=== PATIENT | female | born 1960 | race Caucasian/White ===

== ENCOUNTER → 2017-11-18 12:34 | Outpatient (CLI) | payer BC, SELFPAY ==
--- NOTE | 2017-11-18 12:36 | BI_ITS ---
MAMMOGRAPHY - BILATERAL SCREENING 3-D GUILLERMO SYNTHESIS REASON FOR EXAM: Female, 57 years old. Bilateral Screening 3-D tomosynthesis PERTINENT HISTORY: Aunt with breast cancer.. TECHNIQUE: 2-D mammograms and 3-D Guillermo synthesis of the breast (s) were performed. CAD was performed. COMPARISON: 09/25/2016 FINDINGS: The breast composition is composed of scattered fibroglandular density. Scattered benign calcifications are seen. No dense spiculated masses or suspicious microcalcifications are identified. No architectural distortion is identified. There is no skin thickening or retraction. There has been no significant change since the prior study. BI/SCREENING MAMM (CAD), BILAT IMPRESSION: No mammographic signs of malignancy. Routine yearly mammograms recommended. ASSESSMENT CATEGORY: BIRADS Category 1: Negative. A letter regarding these results will be sent to the patient by the facility within 30 days. FOLLOW UP RECOMMENDATION: Yearly follow up mammogram recommended. (A) Approximately 10% of breast cancers are not detected by mammography. A normal mammogram should not delay biopsy of a clinically suspicious abnormality. Electronically Signed: Tin Peck MD at 9:55 EDT , Service support ,
--- NOTE | 2017-11-18 12:40 | BD_ITS ---
STUDY: DUAL ENERGY X-RAY ABSORPTIOMETRY / DXA REASON FOR EXAM: Female, 57 years old. Postmenopausal screening TECHNIQUE: Bone Mineral Density (BMD) measurements of lumbar spine and bilateral hips were obtained. COMPARISON: None. FINDINGS: Lumbar Spine (L1-L4): g/cm2 (1.387) / T-score (1.7) / Z-score (2.7) Findings are suggestive of normal bone density with a low fracture risk. Left Femur Total: g/cm2 (0.995) / T-score (-0.1) / Z-score (0.7) Left Femoral Neck: g/cm2 (1.117) / T-score (-0.2) / Z-score (1.0) Right Femur Total: g/cm2 (0.997) / T-score (-0.1) / Z-score (0.7) Right Femoral Neck: g/cm2 (1.012) / T-score (-0.2) / Z-score (0.9) BD/Dexa Bone Density Study IMPRESSION: The patient is considered normal as outlined below according to World Vasiliy Organization (WHO) criteria with a low fracture risk. Reference Information: The T-score is the number of standard deviations above or below the standard which is normal for young adults at their peak bone mineral density. The World Health Organization (WHO) interprets the T-scores as follows: Above -1 Normal bone density Between -1 and -2.5 Osteopenia Equal to / or below -2.5 Osteoporosis As a practical clinical guideline, osteopenia may be graded as follows: Mild -1 through -1.5 Moderate -1.6 through -2.0 Severe -2.1 through -2.4 The Z-score is the number of standard deviations above or below age-matched controls. A Z-score of less than -1.5 would be considered abnormal. References: 1. NIH Osteoporosis and Related Bone Diseases http://www.osteo.org 2. International Society for Clinical Densitometry http://www.iscd.org 3. National Osteoporosis Foundation http://www.nof.org Electronically Signed: Tin Peck MD at 12:45 EDT , Service support ,
== END ==
PROVIDERS: Family Provider Family Medicine; PCP Family Medicine; Visit Provider Obstetrics & Gynecology
DX: Z12.31 Encounter for screening mammogram for malignant neoplasm of breast (principal); Z13.820 Encounter for screening for osteoporosis
CPT/HCPCS: 77063; 77067; 77080

== ENCOUNTER → 2019-02-04 16:56 | Outpatient (CLI) | payer OTHER, SELFPAY ==
[2018-03-25 17:26] VITALS: BMI 29.2
[2019-02-04 18:19] LABS: T4 Total, Thyroxin 11.6 ug/dL (4.8-13.9); Thyroid Stim Hormone (TSH) 1.59 uIU/mL (0.358-3.74)
== END ==
PROVIDERS: Family Provider Family Medicine; PCP Family Medicine; Referring Provider Family Medicine; Visit Provider Family Medicine
DX: E04.1 Nontoxic single thyroid nodule (principal)
CPT/HCPCS: 36415; 84436; 84443

== ENCOUNTER → 2019-02-08 14:41 | Outpatient (CLI) | payer OTHER, SELFPAY ==
[2018-03-25 17:26] VITALS: BMI 29.2
--- NOTE | 2019-02-08 14:46 | US_ITS ---
STUDY: THYROID ULTRASOUND REASON FOR EXAM: Female, 59 years old. Thyroid nodule TECHNIQUE: Ultrasound evaluation of the thyroid was performed with real-time and static lopez-scale imaging. COMPARISON: February 20, 2016 FINDINGS: RIGHT LOBE: The right lobe of the thyroid gland measures 5.1 x 1.7 x 1.3 cm. There is a homogeneous echotexture. There is 0.5 cm hypoechoic nodule at the upper pole. LEFT LOBE: The left lobe of the thyroid gland measures 2.9 x 1.7 x 1.4 cm. There is a homogeneous echotexture. There is a 0.3 cm cystic nodule in the mid aspect. ISTHMUS: The isthmus measures 0.2 cm. The regional lymph nodes are normal. US/Thyroid IMPRESSION: Small thyroid nodules are stable. Electronically Signed: Corky Light MD at 17:22 EDT , Service support ,
== END ==
PROVIDERS: Family Provider Family Medicine; PCP Family Medicine; Referring Provider Family Medicine; Visit Provider Family Medicine
DX: E04.1 Nontoxic single thyroid nodule (principal)
CPT/HCPCS: 76536

== ENCOUNTER → 2019-03-11 16:29 | Outpatient (CLI) | payer OTHER, SELFPAY ==
[2018-03-25 17:26] VITALS: BMI 29.2
--- NOTE | 2019-03-11 16:32 | RAD_ITS ---
STUDY: X-RAY - ABDOMEN/PELVIS REASON FOR EXAM: Female, 59 years old. Abdominal pain TECHNIQUE: 3 views COMPARISON: None. FINDINGS: Normal visualized lung bases. There is an unremarkable bowel gas pattern. There is no demonstrated free abdominal air. The visualized liver, spleen and kidneys are grossly normal in size and morphology. Normal soft tissue structures. Mild degenerative vertebral changes. RAD/Abd Inc Decub and/or Erect IMPRESSION: No acute pathology of the abdomen and pelvis. Electronically Signed: Tung Corral DO at 22:37 EST Tel [phone], Service support ,
[2019-03-11 17:40] LABS: Absolute Lymphocyte Count 4.51 X10^3/uL (0.83-4.51); Absolute Neutrophil Count 5.8 X10^3/uL (2.0-7.7); Basophil# 0.05 X10^3/uL; Basophil% 0.4 % (0-1); Eosinophil# 0.12 X10^3/uL; Eosinophils% 1.1 % (0-5); Hematocrit 45.8 % (37-47); Hemoglobin 14.4 g/dL (12.0-15.0); Lymphocyte # 4.51 X10^3/ul (4.0); Lymphocyte % 39.8 % (19-41); Mean Corp Hgb Conc 31.4 g/dL (32-36); Mean Corpuscular Hgb 28.7 pg (27.0-32.0); Mean Corpuscular Volume 91.4 fL (81-99); Monocyte# 0.85 X10^3/uL; Monocyte% 7.5 % (0-10); NRBC Flagged by Analyzer 0 % (0-5); Neutrophil # 5.77 X10^3/uL (2.7-7.7); Neutrophil % 50.8 % (47-70); Platelet Count 315 K/mm3 (150-450); RBC Distribution Width CV 12.8 % (11.6-14.6); RBC Distribution Width SD 43.2 fl (35.1-43.9); Red Blood Count 5.01 M/mm3 (4.2-5.4); White Blood Count 11.3 K/mm3 (4.4-11.0)
== END ==
PROVIDERS: Family Provider Family Medicine; PCP Family Medicine; Referring Provider Family Medicine; Visit Provider Family Medicine
DX: R10.9 Unspecified abdominal pain (principal)
CPT/HCPCS: 36415; 74019; 85025

== ENCOUNTER → 2019-11-03 16:15 | Outpatient (CLI) | payer OTHER, SELFPAY ==
[2018-03-25 17:26] VITALS: BMI 29.2
[2019-11-03 17:37] LABS: Absolute Lymphocyte Count 3.14 X10^3/uL (0.83-4.51); Absolute Neutrophil Count 4.7 X10^3/uL (2.0-7.7); Basophil# 0.03 X10^3/uL; Basophil% 0.3 % (0-1); Eosinophil# 0.11 X10^3/uL; Eosinophils% 1.3 % (0-5); Hematocrit 45.1 % (37-47); Hemoglobin 14.3 g/dL (12.0-15.0); Lymphocyte # 3.14 X10^3/ul (4.0); Lymphocyte % 36.1 % (19-41); Mean Corp Hgb Conc 31.7 g/dL (32-36); Mean Corpuscular Hgb 28.8 pg (27.0-32.0); Mean Corpuscular Volume 90.7 fL (81-99); Mean Platelet Vol. 10.7 fl (6.2-12.0); Monocyte# 0.66 X10^3/uL; Monocyte% 7.6 % (0-10); NRBC Flagged by Analyzer 0 % (0-5); Neutrophil # 4.73 X10^3/uL (2.7-7.7); Neutrophil % 54.2 % (47-70); Platelet Count 312 K/mm3 (150-450); RBC Distribution Width CV 13.8 % (11.6-14.6); Red Blood Count 4.97 M/mm3 (4.2-5.4); White Blood Count 8.7 K/mm3 (4.4-11.0)
[2019-11-03 18:12] LABS: ALB/GLOB Ratio 1.2 RATIO (0.9-2.4); AST(SGOT) 16 U/L (15-37); Alanine Aminotransfer ALT/SGPT 24 U/L (13-56); Albumin, Serum 3.8 g/dL (3.2-5.0); Alkaline Phosphatase 87 U/L (45-117); Anion Gap 6 (5-15); BUN 10 mg/dL (7-18); BUN/Creat Ratio 13.9 RATIO (10-20); Calcium,Total 8.9 mg/dL (8.5-10.1); Chloride 109 mmol/L (98-107); Creatinine, Serum 0.72 mg/dL (0.55-1.02); EST Glomerular Filtration Rate 88 mL/min (>60); Est Glom Filt Rate - Afr Amer 107 mL/min (>60); Globulin 3.3 g/dL (2.2-4.2); Glucose 82 mg/dL (74-106); Potassium 3.8 mmol/L (3.5-5.1); Protein, Total 7.1 g/dL (6.4-8.2); Sodium Level 141 mmol/L (136-145); Thyroid Stim Hormone (TSH) 1.29 uIU/mL (0.358-3.74)
[2019-11-04 07:27] LABS: SARS-COV-2 TOTAL ABS Nonreactive (Nonreactive)
== END ==
PROVIDERS: PCP Family Medicine; Visit Provider Family Medicine
DX: F32.9 Major depressive disorder, single episode, unspecified (principal); Z20.828 Contact with and (suspected) exposure to other viral communicable diseases
CPT/HCPCS: 80053; 84443; 85025; 86769; G2023

== ENCOUNTER → 2021-02-27 15:48 | Outpatient (CLI) | payer BC, SELFPAY ==
[2021-02-27 18:07] LABS: ALB/GLOB Ratio 1.1 RATIO (0.9-2.4); AST(SGOT) 17 U/L (15-37); Alanine Aminotransfer ALT/SGPT 27 U/L (13-56); Albumin, Serum 3.8 g/dL (3.2-5.0); Alkaline Phosphatase 93 U/L (45-117); Anion Gap 5 (5-15); BUN 13 mg/dL (7-18); BUN/Creat Ratio 15.6 RATIO (10-20); Calcium,Total 8.9 mg/dL (8.5-10.1); Chloride 105 mmol/L (98-107); Cholesterol 189 mg/dL (200); Creatinine, Serum 0.83 mg/dL (0.55-1.02); EST Glomerular Filtration Rate 74 mL/min (>60); Est Glom Filt Rate - Afr Amer 90 mL/min (>60); Globulin 3.5 g/dL (2.2-4.2); Glucose 99 mg/dL (74-106); High Density Lipoprotein 40 mg/dL; Potassium 3.8 mmol/L (3.5-5.1); Protein, Total 7.3 g/dL (6.4-8.2); Sodium Level 139 mmol/L (136-145); Triglycerides 246 mg/dL; Very Low Density Lipoprotein 49 mg/dL (5-40)
== END ==
PROVIDERS: PCP Family Medicine; Referring Provider Family Medicine; Visit Provider Family Medicine
DX: Z00.00 Encounter for general adult medical examination without abnormal findings (principal)
CPT/HCPCS: 36415; 80053; 80061

== ENCOUNTER → 2021-03-12 12:47 | Outpatient (CLI) | payer BC, SELFPAY ==
[2021-03-12 13:43] LABS: Erythrocyte Sedimentation Rate 18 mm/hr (0-30)
[2021-03-12 14:24] LABS: CRP 8.56 mg/L (0.0-3.0)
[2021-03-14 19:07] LABS: Endomysial Antibody IgA Negative (Negative)
[2021-03-15 14:05] LABS: Deamidated Gliadin IgA 5 units (0-19)
[2021-03-15 14:06] LABS: Deamidated Gliadin IgG 1 units (0-19); Immunoglobulin A 162 mg/dL (87-352); t-Transglutaminase IgA <2 U/mL (0-3)
[2021-03-15 18:07] LABS: Immunoglobulin A 156 mg/dL (87-352); Immunoglobulin E 226 IU/mL (6-495); Immunoglobulin G 797 mg/dL (586-1602); Immunoglobulin M 104 mg/dL (26-217)
[2021-03-16 11:32] LABS: Gastrin, Serum 446 pg/mL (0-115)
== END ==
PROVIDERS: PCP Family Medicine; Referring Provider Internal Medicine Gastroenterology; Visit Provider Internal Medicine Gastroenterology
DX: R19.7 Diarrhea, unspecified (principal)
CPT/HCPCS: 36415; 82784; 82785; 82941; 83516; 84443; 85652; 86140; 86255

== ENCOUNTER → 2021-04-04 06:38 | Outpatient (CLI) | payer BC, SELFPAY ==
--- NOTE | 2021-04-04 06:40 | MRI_ITS ---
STUDY: MRI ABDOMEN WITH AND WITHOUT CONTRAST REASON FOR EXAM: Female, 61 years old. Elevated gastrin level, chronic diarrhea TECHNIQUE: Standardized fat and water weighted pulse sequences were obtained in all 3 orthogonal planes post contrast administration. 16ml IV Dotarem was administered for the contrast portion of the examination. COMPARISON: CT 02/06/1950 FINDINGS: The visualized lung bases are unremarkable. The visualized portions of the heart are within normal limits. Normal liver. There is non-visualization of the gallbladder, which may be secondary to either contraction or a prior cholecystectomy. Normal spleen. Normal pancreas. Normal bilateral adrenal glands. Normal right kidney. Normal left kidney. Normal visualized stomach. Normal small intestine. Normal colon. The appendix is visualized and appears normal. Normal abdominal aorta. Normal inferior vena cava. Normal retroperitoneum. Normal abdominal wall. Normal osseous structures. MRI/MRI Abd WITH and W/O Contrast IMPRESSION: Normal unenhanced and enhanced MRI of the abdomen. Electronically Signed: Damian Dutta MD at 10:42 EST Tel , Service support ,
[2021-04-05 16:45] LABS: Calprotectin, Stool 83 ug/g (0-120)
[2021-04-05 16:57] LABS: Giardia Lamblia, Stool EIA Negative (Negative)
== END ==
PROVIDERS: PCP Family Medicine; Referring Provider Internal Medicine Gastroenterology; Visit Provider Internal Medicine Gastroenterology
DX: E16.4 Increased secretion of gastrin (principal); R19.7 Diarrhea, unspecified; Z86.73 Personal history of transient ischemic attack (TIA), and cerebral infarction without residual deficits
CPT/HCPCS: 74183; 83993; 87329; 87506; A9575

== ENCOUNTER 2021-04-11 07:01 | Day surgery (SDC) | payer BC, SELFPAY ==
[2021-04-11] MEDS: Lactated Ringers 1,000 ML 15 ML IV (07:15)
[2021-04-11 07:26] VITALS: BP 148/94; PULSE 67; RESP 16; TEMP 36.2; O2SAT 99; BMI 26.4
--- NOTE | 2021-04-11 07:59 | HP.PCM_ITS ---
History and Physical Date of Admission: 04/11/21 [facility] [id number] [place] [address] OFFICE VISITDate of Service: 03/12/21 MR#:[id number]:[id number]: OSMAR ARROYONRep #:[id number] Provider:Kendall Dupont DOAge/Sex: 61/F [facility] [place].BGIStatus:Signed Intake Intake Visit Reasons: Irritable bowel syndrome Allergies No Known Allergies Allergy (Verified 03/12/21 11:57) Medications lorazepam 0.5 - 1 mg PO PRN PRN 04/03/15 [History Confirmed 03/12/21] multivitamin with minerals 1 ea PO DAILY 04/03/15 [History Confirmed 03/12/21] ondansetron 4 mg PO Q8H PRN PRN #10 tab 04/03/15 [Rx Confirmed 03/12/21] Dicyclomine HCl 20 mg PO TID PRN PRN 08/18/15 [History Confirmed 03/12/21] omeprazole 20 mg PO DAILY 08/18/15 [History Confirmed 03/12/21] levofloxacin 750 mg PO DAILY #7 tab 08/21/15 [Rx Confirmed 03/12/21] amoxicillin 875 mg-potassium clavulanate 125 mg tablet 1 tab PO BID #20 tab 03/25/18 [Rx Confirmed 03/12/21] PFSH Medical History (Updated 03/12/21 @ 12:[address] Kendall Dupont, ) Chronic neck and back pain Diarrhea History of arthritis History of bacterial pneumonia History of diarrhea History of hemorrhoids Knee pain Shoulder pain Surgical History History of cholecystectomy History of hysterectomy Social History Smoking Status: Light Smoker (<10/day) HPI HPI Details: OSMAR ARROYO, is a 61 F who presents to the office today for further evaluation of frequent diarrhea. She has diarrhea with drinking water or eating any types of foods. She can get it without even eat any foods. She has not been on any medicines for her diarrhea. She was given a diagnosis of IBS with diarrhea. She would like to establish care for IBS-D. Diagnosed about 6 years ago. Becomes bloated with abdominal distention that causes intense pressure and pain. Diarrhea occurs daily with about 8 bowel movements a day, sometimes solid but very small rabbit pellets or it is explosive diarrhea. PO intakes causes her to have diarrhea within 30 minutes. Pain, bloating and diarrhea are interrupting her life. She has been followed by Dr. Oliva previously. Has attempted nexium/prilosec and probiotic for IBS. Probiotic helps reduce the gas pressure. PCP recommended fiber. Last colonoscopy four years prior. ROS Eyes Eyes: Positive for irritation and discharge ENT ENT: Positive for ear or mastoid pain, tinnitus, nasal congestion and hoarseness Gastro GI: Positive for abdominal pain, bloating, diarrhea and heartburn Skin Skin: Positive for dry skin Exam Const General: cooperative and comfortable Nutritional Appearance: average body habitus and well nourished HENMT Head: normal to inspection Ears: hearing grossly normal bilaterally Nose: external nose normal Face and sinus: normal facial exam Mouth: oral mucosae normal Throat: posterior oropharynx normal Eyes General: appearance normal, both eyes and all related structures Neck Neck: normal visual inspection Chest Chest palpation & inspection: normal inspection of the chest and normal palpation of entire chest wall Resp Effort & Inspection: normal respiratory effort Auscultation: Bilateral: Clear to Auscultation Cardio Palpation: normal PMI Rate: regular rate Rhythm: regular rhythm GI Inspection: normal to inspection Auscultation: normal bowel sounds Percussion: normal to percussion Palpation: no hepatosplenomegaly Skin General: no rashes or lesions noted Neuro General: patient alert Extrem General: normal to inspection Psych Affect: normal affect Quality Reporting Tobacco Screening ([facility] 138) Smoking Status: Light Smoker (<10/day) Assessment and Plan Assessment and Plan (1) Irritable bowel syndrome: Plan - Dr. Argueta Friend, DO: This is a possible diagnosis however she will need a biochemical and stool analysis along with biopsies of her upper and lower GI tract to see if she truly has aorta bowel syndrome with diarrhea. We will also have to do a fluid analysis and possibly a biochemical analysis to look to see if she has any all ergies to any particular foods. (2) Diarrhea: Status: Acute Orders: Orders: CRP Today Erythrocyte Sed Rate Today Celiac AB,Comprehensive Today Thyroid Stim Hormone (TSH) Today Calprotectin, Stool Today ENTERIC PATHOGEN PANEL STOOL Today Giardia Lamblia, Stool EIA Today Gastrin, Serum Today Immunoglobulins G/A/M/E Today Plan - Dr. Argueta Friend, DO: We will do an evaluation of the upper lower GI tract with biopsies to see if she has any signs of celiac disease, microscopic colitis, lymphocytic colitis or collagenous colitis. We will also look for signs of eosinophilic gastroenteritis. I have re-examined the patient. There are no clinical changes since date of exam.
--- NOTE | 2021-04-11 08:00 | COLBX_PTH ---
PATIENT: OSMAR ARROYO LOC: EN U#:[id number] AGE/SX: 61/F ROOM: RE04/11/[address]: Dr. Kendall Dupont DO : 1960 BED: DIS: 04/11/2021 SPEC #: [id number] RECD: 04/11/21 09:21 STATUS: DIMITRIS DEVIN #: [id number] JOSH: 04/11/21 08:[address]: Kendall Dupont DEPT: SURGICAL PATHOLOGY RECD BY: Javan Mao ENTERED: 04/11/21 10:50 SP TYPE: COLON BX OTHR DR: Dr. Herminia Barros MD Tissues: A - Duodenum, NOS B - Stomach, NOS C - Esophagus, NOS D - Ileum, NOS E - POLYP F - COLON BIOPSY G - SPLENIC FLEXURE Procedures: Special Stain Group II Surgery Specimen Level IV Alcian Blue/PAS (control) HEADER OPERATION: Colonoscopy, E[place] ([facility] [place] PRE-OP DIAGNOSIS: Irritable bowel syndrome, diarrhea TISSUE SUBMITTED: A ? Duodenum biopsy, B ? Stomach biopsy, C ? Esophagus biopsy, D ? Terminal ileum biopsy, E ? Hepatic flexure polyps, F ? Random colonic biopsy, G ? Splenic flexure polyp MICROSCOPIC DIAGNOSIS A. Duodenum, biopsy: No pathologic change. Fragments of benign gastric mucosa with mild chronic inflammation. B. Gastric mucosa, biopsy: Minimal chronic inflammation. C. Esophagus, biopsy: Gastroesophageal junction with mild chronic inflammation. No evidence of goblet cell metaplasia. See comment. D. Terminal ileum, biopsy: No pathologic change. E. Colonic polyps at hepatic flexure, biopsy: Fragments of hyperplastic polyps. F. Colon, random biopsy: No pathologic change. G. Colonic polyp at splenic flexure, biopsy: Fragments of hyperplastic polyp. AM:radha 04/12/2021 COMMENT C. Alcian blue/PAS stain with matched control supports the above diagnosis. MICROSCOPIC DESCRIPTION Slides are reviewed. GROSS DESCRIPTION A - Received in fixative is one container labeled with the patient's name and designated duodenum biopsy. The specimen consists of multiple irregular fragments of light hernandes soft tissue that in aggregate measure 1.5 x 0.5 x 0.1 cm. The specimen is totally submitted in one cassette. B - Received in fixative is one container labeled with the patient's name and designated stomach biopsy. The specimen consists of two irregular fragments of light hernandes soft tissue that in aggregate measure 0.8 x 0.6 x 0.1 cm. The specimen is totally submitted in one cassette. C - Received in fixative is one container labeled with the patient's name and designated esophagus biopsy. The specimen consists of multiple irregular fragments of light hernandes soft tissue that in aggregate measure 1 x 0.2 x 0.1 cm. The specimen is totally submitted in one cassette. D - Received in fixative is one container labeled with the patient's name and designated terminal ileum biopsy. The specimen consists of two irregular fragments of light hernandes soft tissue that in aggregate measure 0.8 x 0.8 x 0.1 cm. The specimen is totally submitted in one cassette. E - Received in fixative is one container labeled with the patient's name and designated hepatic flexure polyp. The specimen consists of multiple irregular fragments of light hernandes soft tissue that in aggregate measure 1.5 x 0.3 x 0.1 cm. The specimen is totally submitted in one cassette. F - Received in fixative is one container labeled with the patient's name and designated random colon biopsy. The specimen consists of multiple irregular fragments of light hernandes soft tissue that in aggregate measure 2 x 1.5 x 0.1 cm. The specimen is totally submitted in one cassette. G - Received in fixative is one container labeled with the patient's name and designated splenic flexure polyp. The specimen consists of multiple irregular fragments of light hernandes soft tissue that in aggregate measure 1.5 x 0.5 x 0.1 cm. The specimen is totally submitted in one cassette. / AM:rg 04/11/21 TC:3 CPT: 05507 x7, 34168
[2021-04-11 09:00] VITALS: BP 112/80; BP 148/94; PULSE 77; RESP 16; TEMP 36.1; O2SAT 99
--- NOTE | 2021-04-11 09:03 | OP.EGD_ITS ---
Patient Name: Elo Laws Procedure Date: 04/11/2021 7:59 AM Date of : 1960 Age: 61 Procedure: Upper GI endoscopy Indications: Functional Dyspepsia Providers: Kendall Dupont DO Medicines: See the Anesthesia note for documentation of the administered medications Patient Profile: This is a 61 year old female. Refer to note in patient chart for documentation of history and physical. Patient has symptoms of chronic abdominal cramping and acute epigastric abdominal pain. Complications: No immediate complications. Procedure: Pre-Anesthesia Assessment: - Prior to the procedure, a History and Physical was performed, and patient medications and allergies were reviewed. The patient is competent. The risks and benefits of the procedure and the sedation options and risks were discussed with the patient. All questions were answered and informed consent was obtained. Patient identification and proposed procedure were verified by the physician in the pre-procedure area. Mental Status Examination: alert and oriented. Airway Examination: normal oropharyngeal airway and neck mobility. Respiratory Examination: clear to auscultation. CV Examination: normal. Prophylactic Antibiotics: The patient does not require prophylactic antibiotics. Prior Anticoagulants: The patient has taken no previous anticoagulant or antiplatelet agents. ASA Grade Assessment: II - A patient with mild systemic disease. After reviewing the risks and benefits, the patient was deemed in satisfactory condition to undergo the procedure. The anesthesia plan was to use moderate sedation / analgesia (conscious sedation). Immediately prior to administration of medications, the patient was re-assessed for adequacy to receive sedatives. The heart rate, respiratory rate, oxygen saturations, blood pressure, adequacy of pulmonary ventilation, and response to care were monitored throughout the procedure. The physical status of the patient was re-assessed after the procedure. After obtaining informed consent, the endoscope was passed under direct vision. Throughout the procedure, the patient's blood pressure, pulse, and oxygen saturations were monitored continuously. The pediatric colonoscope was introduced through the mouth, and advanced to the second part of duodenum. The upper GI endoscopy was accomplished without difficulty. The patient tolerated the procedure well. Moderate Sedation: Moderate (conscious) sedation was administered by the endoscopy nurse and supervised by the endoscopist. The patient's oxygen saturation, heart rate, blood pressure and response to care were monitored. Total physician intraservice time was 15 minutes. Scope In: 8:12:36 AM Scope Out: 8:21:25 AM Total Procedure Duration Time 0 hours 8 minutes 49 seconds Findings: LA Grade A (one or more mucosal breaks less than 5 mm, not extending between tops of 2 mucosal folds) esophagitis with no bleeding was found 34 to 35 cm from the incisors. Biopsies were taken with a cold forceps for histology. Verification of patient identification for the specimen was done. Estimated blood loss was minimal. A medium-sized hiatal hernia was present. Scattered inflammation characterized by congestion (edema) and erythema was found in the gastric antrum. Biopsies were taken with a cold forceps for histology. Verification of patient identification for the specimen was done. Estimated blood loss was minimal. Diffuse moderately erythematous mucosa without active bleeding and with no stigmata of bleeding was found in the entire duodenum. This was biopsied with a cold forceps for histology. Verification of patient identification for the specimen was done. Estimated blood loss was minimal. Impression: - LA Grade A reflux esophagitis. Biopsied. - Medium-sized hiatal hernia. - Atrophic gastritis. Biopsied. - Erythematous duodenopathy. Biopsied. Recommendation: - Discharge patient to home. - Resume previous diet. - Continue present medications. - Await pathology results. - Return to my office in 2 weeks. Procedure Code(s): --- Professional --- 88957, Esophagogastroduodenoscopy, flexible, transoral; with biopsy, single or multiple G0500, Moderate sedation services provided by the same physician or other qualified health director of managed care performing a gastrointestinal endoscopic service that sedation supports, requiring the presence of an independent trained observer to assist in the monitoring of the patient's level of consciousness and physiological status; initial 15 minutes of intra-service time; patient age 5 years or older (additional time may be reported with 42469, as appropriate) CPT copyright 2017 [employer]. All rights reserved. The codes documented in this report are preliminary and upon financial service professional review may be revised to meet current compliance requirements. Kendall Dupont DO 04/11/2021 9:03:44 AM This report has been signed electronically. Number of Addenda: 1 Note Initiated On: 04/11/2021 7:59 AM Addendum Number: 1 Addendum Date: 01/02/2022 7:16:10 AM MAC was used instead of moderate sedation for the patient. Kendall Dupont DO 01/02/2022 7:16:14 AM This report has been signed electronically.
--- NOTE | 2021-04-11 09:04 | OP.CCLET_ITS ---
01/02/2022 Herminia Barros [address] [place] [address] Re : Upper GI endoscopy procedure for Elo Laws Dear Dr. Barros This procedure was performed on Sunday, April 11, 2021. My impressions and recommendations are as follows: Impressions : - LA Grade A reflux esophagitis. Biopsied. - Medium-sized hiatal hernia. - Atrophic gastritis. Biopsied. - Erythematous duodenopathy. Biopsied. Recommendations : - Discharge patient to home. - Resume previous diet. - Continue present medications. - Await pathology results. - Return to my office in 2 weeks. My findings are described in the full procedure note, which is enclosed. If I can be of further assistance, please feel free to contact me at . Sincerely, Kendall Dupont, 04/11/2021 9:03:44 AM This report has been signed electronically.
[2021-04-11 09:05] VITALS: BP 116/73; BP 148/94; PULSE 80; RESP 16; O2SAT 98
[2021-04-11 09:10] VITALS: BP 121/76; BP 148/94; PULSE 72; RESP 16; O2SAT 98
--- NOTE | 2021-04-11 09:15 | OP.COLON_ITS ---
Patient Name: Elo Laws Procedure Date: 04/11/2021 8:22 AM Date of : 1960 Age: 61 Procedure: Colonoscopy Indications: Chronic diarrhea, Clinically significant diarrhea of unexplained origin Providers: Kendall Dupont DO Medicines: See the Anesthesia note for documentation of the administered medications Patient Profile: This is a 61 year old female. Refer to note in patient chart for documentation of history and physical. Patient has symptoms of chronic abdominal cramping and acute epigastric abdominal pain. Last Colonoscopy: within the past 3 years. Complications: No immediate complications. Procedure: Pre-Anesthesia Assessment: - Prior to the procedure, a History and Physical was performed, and patient medications and allergies were reviewed. The patient is competent. The risks and benefits of the procedure and the sedation options and risks were discussed with the patient. All questions were answered and informed consent was obtained. Patient identification and proposed procedure were verified by the physician in the pre-procedure area. Mental Status Examination: alert and oriented. Airway Examination: normal oropharyngeal airway and neck mobility. Respiratory Examination: clear to auscultation. CV Examination: normal. Prophylactic Antibiotics: The patient does not require prophylactic antibiotics. Prior Anticoagulants: The patient has taken no previous anticoagulant or antiplatelet agents. ASA Grade Assessment: II - A patient with mild systemic disease. After reviewing the risks and benefits, the patient was deemed in satisfactory condition to undergo the procedure. The anesthesia plan was to use moderate sedation / analgesia (conscious sedation). Immediately prior to administration of medications, the patient was re-assessed for adequacy to receive sedatives. The heart rate, respiratory rate, oxygen saturations, blood pressure, adequacy of pulmonary ventilation, and response to care were monitored throughout the procedure. The physical status of the patient was re-assessed after the procedure. After I obtained informed consent, the scope was passed under direct vision. Throughout the procedure, the patient's blood pressure, pulse, and oxygen saturations were monitored continuously. The pediatric colonoscope was introduced through the anus and advanced to the terminal ileum. The colonoscopy was performed without difficulty. The patient tolerated the procedure well. The quality of the bowel preparation was good. Moderate Sedation: Moderate (conscious) sedation was administered by the endoscopy nurse and supervised by the endoscopist. The patient's oxygen saturation, heart rate, blood pressure and response to care were monitored. Total physician intraservice time was 15 minutes. Moderate (conscious) sedation was administered by the endoscopy nurse and supervised by the endoscopist. The patient's oxygen saturation, heart rate, blood pressure and response to care were monitored. Total physician intraservice time was 15 minutes. Scope In: 8:24:53 AM Scope Withdrawal Time 0 hours 26 minutes 8 seconds Scope Out: 8:54:36 AM Total Procedure Duration Time 0 hours 29 minutes 43 seconds Findings: The perianal and digital rectal examinations were normal. Three sessile polyps were found in the splenic flexure and hepatic flexure. The polyps were 1 to 2 mm in size. These polyps were removed with a hot snare. Resection and retrieval were complete. Verification of patient identification for the specimen was done. Estimated blood loss was minimal. An area of moderately congested mucosa was found in the sigmoid colon. An area of mildly congested mucosa was found in the recto-sigmoid colon, in the sigmoid colon, in the descending colon, at the splenic flexure, in the transverse colon and in the ascending colon. This was biopsied with a cold forceps for histology. Verification of patient identification for the specimen was done. Estimated blood loss was minimal. Multiple small and large-mouthed diverticula were found in the sigmoid colon, descending colon, splenic flexure, transverse colon and hepatic flexure. There was no evidence of diverticular bleeding. Impression: - Three 1 to 2 mm polyps at the splenic flexure and at the hepatic flexure, removed with a hot snare. Resected and retrieved. - Congested mucosa in the sigmoid colon. - Congested mucosa in the recto-sigmoid colon, in the sigmoid colon, in the descending colon, at the splenic flexure, in the transverse colon and in the ascending colon. Biopsied. - Moderate diverticulosis in the sigmoid colon, in the descending colon, at the splenic flexure, in the transverse colon and at the hepatic flexure. There was no evidence of diverticular bleeding. Recommendation: - Discharge patient to home. - Resume previous diet. - Recommend antidiarrheal medication for 4 weeks. - Repeat colonoscopy in 3 years for surveillance of multiple polyps. - Continue present medications. Procedure Code(s): --- Professional --- 80116, Colonoscopy, flexible; with removal of tumor(s), polyp(s), or other lesion(s) by snare technique 11316, 59, Colonoscopy, flexible; with biopsy, single or multiple G0500, Moderate sedation services provided by the same physician or other qualified health child care attendant school performing a gastrointestinal endoscopic service that sedation supports, requiring the presence of an independent trained observer to assist in the monitoring of the patient's level of consciousness and physiological status; initial 15 minutes of intra-service time; patient age 5 years or older (additional time may be reported with 73665, as appropriate) G0500, Moderate sedation services provided by the same physician or other qualified health child care attendant school performing a gastrointestinal endoscopic service that sedation supports, requiring the presence of an independent trained observer to assist in the monitoring of the patient's level of consciousness and physiological status; initial 15 minutes of intra-service time; patient age 5 years or older (additional time may be reported with 68865, as appropriate) CPT copyright 2017 [employer]. All rights reserved. The codes documented in this report are preliminary and upon patient svcs mgr review may be revised to meet current compliance requirements. Kendall Dupont DO 04/11/2021 9:14:19 AM This report has been signed electronically. Number of Addenda: 1 Note Initiated On: 04/11/2021 8:22 AM Addendum Number: 1 Addendum Date: 01/02/2022 7:16:24 AM MAC was used instead of moderate sedation for the patient. Kendall Dupont DO 01/02/2022 7:16:30 AM This report has been signed electronically.
--- NOTE | 2021-04-11 09:15 | OP.CCLET_ITS ---
01/02/2022 Herminia Barros [address] [place] [address] Re : Colonoscopy procedure for Elo Laws Dear Dr. Barros This procedure was performed on Sunday, April 11, 2021. My impressions and recommendations are as follows: Impressions : - Three 1 to 2 mm polyps at the splenic flexure and at the hepatic flexure, removed with a hot snare. Resected and retrieved. - Congested mucosa in the sigmoid colon. - Congested mucosa in the recto-sigmoid colon, in the sigmoid colon, in the descending colon, at the splenic flexure, in the transverse colon and in the ascending colon. Biopsied. - Moderate diverticulosis in the sigmoid colon, in the descending colon, at the splenic flexure, in the transverse colon and at the hepatic flexure. There was no evidence of diverticular bleeding. Recommendations : - Discharge patient to home. - Resume previous diet. - Recommend antidiarrheal medication for 4 weeks. - Repeat colonoscopy in 3 years for surveillance of multiple polyps. - Continue present medications. My findings are described in the full procedure note, which is enclosed. If I can be of further assistance, please feel free to contact me at . Sincerely, Kendall Dupont, 04/11/2021 9:14:19 AM This report has been signed electronically.
[2021-04-11 09:16] VITALS: BP 120/78; BP 148/94; PULSE 56; RESP 16; TEMP 36.1; O2SAT 98
[2021-04-11 09:29] VITALS: BP 148/94
== END 2021-04-11 09:46 | disposition home or self-care (01) ==
LOC: EN 07:04 → AC 07:04
PROVIDERS: PCP Family Medicine; Referring Provider Family Medicine; Visit Provider Internal Medicine Gastroenterology
PROC: 0DJD8ZZ Inspection of Lower Intestinal Tract, Via Natural or Artificial Opening Endoscopic (ICD-10-PCS; CPT 45378; principal; 2021-04-11 07:55)
DX: K29.40 Chronic atrophic gastritis without bleeding (principal); K21.00 Gastro-esophageal reflux disease with esophagitis, without bleeding; K44.9 Diaphragmatic hernia without obstruction or gangrene; K63.5 Polyp of colon; K57.30 Diverticulosis of large intestine without perforation or abscess without bleeding; K58.9 Irritable bowel syndrome, unspecified; G89.29 Other chronic pain; F41.9 Anxiety disorder, unspecified; K21.9 Gastro-esophageal reflux disease without esophagitis; E07.9 Disorder of thyroid, unspecified; J45.909 Unspecified asthma, uncomplicated; Z90.49 Acquired absence of other specified parts of digestive tract; Z87.01 Personal history of pneumonia (recurrent); Z79.899 Other long term (current) drug therapy; F17.200 Nicotine dependence, unspecified, uncomplicated
CPT/HCPCS: 43239; 45380; 45385; 88305; 88313; J7120; J2405

== ENCOUNTER → 2021-04-16 11:56 | Outpatient (CLI) | payer BC, SELFPAY ==
--- NOTE | 2021-04-16 11:59 | BI_ITS ---
MAMMOGRAPHY - BILATERAL SCREENING REASON FOR EXAM: Female, 61 years old. Routine annual screening examination. PERTINENT HISTORY: Aunt with breast cancer. Remote left stereotactic breast biopsy. TECHNIQUE: Digital bilateral breast guillermo (3D mammographic acquisition) in the CC and MLO projections. 2-D mediolateral oblique (MLO) and craniocaudad (CC) views of both breasts were obtained. CAD: Full Field Digital Mammography with Computer Added Detection was performed. COMPARISON: Comparison is made with prior study dated 11/18/2017 and 09/25/2016. FINDINGS: Breast Composition: There are scattered areas of fibroglandular density. There are no dominant masses or suspicious calcifications. A tissue clip marker is once again seen in the retroareolar region of the left breast. No other significant abnormalities are identified. There has been no significant change since the prior study. BI/SCRN MAMM (CAD)W/GUILLERMO BILAT IMPRESSION: Stable bilateral screening mammogram. Yearly follow-up mammogram recommended. (A) ASSESSMENT CATEGORY: BIRADS Category 2: Benign. A letter regarding these results will be sent to the patient by the facility within 30 days. Approximately 10% of breast cancers are not detected by mammography. A normal mammogram should not delay biopsy of a clinically suspicious abnormality. [id number] Electronically Signed: Arron Carias MD at 12:36 EST , Service support ,
== END ==
PROVIDERS: PCP Family Medicine; Referring Provider Family Medicine; Visit Provider Family Medicine
DX: Z12.31 Encounter for screening mammogram for malignant neoplasm of breast (principal)
CPT/HCPCS: 77063; 77067

== ENCOUNTER 2021-05-01 15:47 | Outpatient (CLI) | payer OTHER, SELFPAY | END 2021-05-01 23:59 | disposition short-term general hospital (02) | PROVIDERS: PCP Family Medicine; Referring Provider Family Medicine; Visit Provider Family Medicine | DX: U07.1 COVID-19 (principal) | CPT/HCPCS: 87635; U0003 ==

== ENCOUNTER → 2021-09-17 | Outpatient (CLI) | payer OTHER, SELFPAY ==
[2021-09-19 19:44] LABS: Gastrin, Serum 34 pg/mL (0-115)
== END | disposition home or self-care (01) ==
LOC: LAB 07:44
PROVIDERS: PCP Family Medicine; Referring Provider Internal Medicine Gastroenterology; Visit Provider Internal Medicine Gastroenterology
DX: R19.7 Diarrhea, unspecified (principal)
CPT/HCPCS: 36415; 82941

== ENCOUNTER → 2022-04-05 | Outpatient (CLI) | payer OTHER, SELFPAY ==
[2022-04-09 11:27] LABS: Gastrin, Serum 59 pg/mL (0-115)
== END | disposition home or self-care (01) ==
LOC: LAB 10:50
PROVIDERS: PCP Family Medicine; Referring Provider Nurse Practitioner Adult Health; Visit Provider Nurse Practitioner Adult Health
DX: E16.4 Increased secretion of gastrin (principal)
CPT/HCPCS: 36415; 82941

== ENCOUNTER → 2022-06-21 | Outpatient (CLI) | payer OTHER, SELFPAY ==
[2022-06-21 18:15] LABS: ALB/GLOB Ratio 1.2 RATIO (0.9-2.4); AST(SGOT) 21 U/L (15-37); Alanine Aminotransfer ALT/SGPT 27 U/L (13-56); Albumin, Serum 3.8 g/dL (3.2-5.0); Alkaline Phosphatase 84 U/L (45-117); Anion Gap 6 (5-15); BUN 13 mg/dL (7-18); BUN/Creat Ratio 17.8 RATIO (10-20); Calcium,Total 8.8 mg/dL (8.5-10.1); Chloride 104 mmol/L (98-107); Cholesterol 188 mg/dL (200); Creatinine, Serum 0.73 mg/dL (0.55-1.02); EST Glomerular Filtration Rate 86 mL/min (>60); Est Glom Filt Rate - Afr Amer 104 mL/min (>60); Globulin 3.1 g/dL (2.2-4.2); Glucose 130 mg/dL (74-106); High Density Lipoprotein 40 mg/dL; Potassium 3.7 mmol/L (3.5-5.1); Protein, Total 6.9 g/dL (6.4-8.2); Sodium Level 137 mmol/L (136-145); Triglycerides 183 mg/dL; Very Low Density Lipoprotein 37 mg/dL (5-40)
== END | disposition home or self-care (01) ==
LOC: MFPLAB 15:13
PROVIDERS: PCP Family Medicine; Referring Provider Family Medicine; Visit Provider Family Medicine
DX: Z00.00 Encounter for general adult medical examination without abnormal findings (principal)
CPT/HCPCS: 36415; 80053; 80061

== ENCOUNTER → 2022-07-05 | Outpatient (CLI) | payer OTHER, SELFPAY ==
--- NOTE | 2022-07-05 12:22 | BI_ITS ---
MAMMOGRAPHY - BILATERAL SCREENING REASON FOR EXAM: Female, 62 years old. Routine annual screening examination. PERTINENT HISTORY: Aunt with breast cancer. History of prior left excisional breast biopsy and left stereotactic breast biopsy. TECHNIQUE: Digital bilateral breast guillermo (3D mammographic acquisition) in the CC and MLO projections. 2-D mediolateral oblique (MLO) and craniocaudad (CC) views of both breasts were obtained. CAD: Full Field Digital Mammography with Computer Added Detection was performed. COMPARISON: Comparison is made with prior study dated January 15, 2021 and November 18, 2017. FINDINGS: Breast Composition: There are scattered areas of fibroglandular density. There are no dominant masses or suspicious calcifications. Stable small benign-appearing bilateral axillary lymph nodes. Once again, a tissue marker is seen in the retroareolar region of the left breast. No other significant abnormalities are identified. There has been no significant change since the prior study. BI/SCRN MAMM (CAD)W/GUILLERMO BILAT IMPRESSION: Stable bilateral screening mammogram. Yearly follow-up mammogram recommended. (A) ASSESSMENT CATEGORY: BIRADS Category 2: Benign. A letter regarding these results will be sent to the patient by the facility within 30 days. Approximately 10% of breast cancers are not detected by mammography. A normal mammogram should not delay biopsy of a clinically suspicious abnormality. [id number] Electronically Signed: Arron Carias MD at 13:19 EST ,
== END | disposition home or self-care (01) ==
LOC: OPBI 12:21
PROVIDERS: PCP Family Medicine; Visit Provider Family Medicine
DX: Z00.00 Encounter for general adult medical examination without abnormal findings (principal); Z12.31 Encounter for screening mammogram for malignant neoplasm of breast
CPT/HCPCS: 77063; 77067

== ENCOUNTER 2022-11-08 09:01 | Day surgery (SDC) | payer OTHER, SELFPAY ==
[2022-11-08 09:25] VITALS: BP 142/85; PULSE 70; RESP 16; TEMP 36.3; O2SAT 100; BMI 26.9
--- NOTE | 2022-11-08 09:42 | HP.PCM_ITS ---
HPI - General HPI Narrative OSMAR ARROYO, is a 62 F who presents [facility] Medical History (Updated 10/02/22 @ 16:[address] Nevaeh Ma MD) Allergies Anxiety Asthma Breast lump in female Cataracts, bilateral Chronic neck and back pain Diarrhea Gastric reflux History of arthritis History of bacterial pneumonia History of diarrhea History of hemorrhoids History of stress test Hives IBS (irritable bowel syndrome) Knee pain Pneumonia Shoulder pain Smoker Thyroid disease Wears glasses Home Medications cetirizine 10 mg tablet (Zyrtec) 10 mg PO DAILY 04/10/21 [History Last Taken 11/08/22 06:40] fluticasone propionate 50 mcg/actuation nasal spray,suspension 1 spray intranasal DAILY 04/10/21 [History Last Taken Unknown] olopatadine 0.2 % eye drops 1 drp EACH EYE DAILY 04/10/21 [History Last Taken Unknown] colestipol 1 gram tablet 1 g PO ONCE #90 tabs 04/16/22 [Rx Last Taken Unknown] famotidine 20 mg tablet 20 mg PO Q8H #270 tabs 04/16/22 [Rx Last Taken 11/08/22 06:40] multivitamin (Daily Multi-Vitamin tablet) 1 tab PO DAILY 10/02/22 [History Last Taken Unknown] Allergy/AdvReac Type Severity Reaction Status Date / Time codeine Allergy Severe Nausea/Vom/ Verified 11/08/22 09:23 Diarrhea morphine Allergy Severe Nausea/Vom/ Verified 11/08/22 09:23 Diarrhea Tetracyclines Allergy Severe Nausea/Vom/ Verified 11/08/22 09:23 Diarrhea Family History (Updated 10/02/22 @ 16:10 by Emma Rivera) Father Anesthesia complication Asthma Cancer Brain Cancer Heart disease Diabetes Hypertension High cholesterol COPD (chronic obstructive pulmonary disease) CVA (cerebral vascular accident) Mother Kidney disease Lung cancer Aunt Breast cancer Grandfather Diabetes Grandmother Diabetes Grandfather Diabetes Grandmother Diabetes Surgical History History of cholecystectomy History of hysterectomy Social History (Updated 10/02/22 @ 16:11 by Emma Rivera) Smoking Status: Light Smoker (<10/day) alcohol intake: current substance use type: does not use additional social history: Does Not Take Aspirin Does Not Take Ibuprofen Vital Signs Vital Signs Vital Signs: 11/08/22 09:25 07 09:25 Temperature 97.4 F L Temperature Source Temporal Pulse Rate 70 Respiratory Rate 16 Respiratory Pattern Normal Blood Pressure 142/85 H Blood Pressure Mean 104 Blood Pressure Source Monitor Blood Pressure Position Semi-Fowlers Blood Pressure Location Right Arm Pulse Ox 100 Oxygen Delivery Method Room Air Weight Weight: 171 lb 15.369 oz Body Mass Index (BMI) 26.9 Physical Exam Const alert, oriented x3, no apparent distress, average body habitus and well nourished General Appearance: cooperative and well developed Orientation / Consciousness: oriented to person, oriented to place and oriented to time HEENT head/scalp atraumatic, external ears normal and external nose normal Head and Scalp: normal to inspection, normocephalic, atraumatic and abrasion Face and Sinus: normal facial exam and face symmetric Nose: external nose normal External Ear: external ears normal External Auditory Canal: EAC's normal Mouth: lips normal Eyes PERRL, EOMs intact bilaterally and conjunctivae normal General Eye: normal appearance of both eyes Periorbital: periorbital findings normal Eyelid: eyelids normal Conjunctiva: conjunctiva normal Pupil: PERRL Neck full ROM Lymph Lymphatic: no lymphadenopathy noted Chest inspection of chest normal Breast/Axilla Palpation: no axillary lymphadenopathy Resp normal respiratory effort, normal air movement and clear to auscultation bilaterally Auscultation: clear to auscultation bilaterally Cardio regular rate, regular rhythm, S1 normal heart sound, S2 normal heart sound and no murmurs Rate: regular rate Rhythm: regular rhythm GI soft to palpation and non-tender Extremity normal to inspection and full ROM General Extremity: normal exam except as noted Skin Skin Narrative: Subcutaneous cyst of left lateral cheek. Smaller cyst left posterior back near shoulder General Skin Exam: turgor normal Neuro oriented x3, CN's II-XII intact bilaterally, moves all extremities, no focal motor deficits and no sensory deficits noted Sensorium / Orientation: awake, alert, oriented to person, oriented to place and oriented to time Speech: speech normal Gait (Neuro): normal gait Psych mental status grossly normal Attention / Concentration: concentration grossly intact Memory / Cognition: memory grossly intact
[2022-11-08] MEDS: SODIUM BICARBONATE OPERA.SITE (10:13)
[2022-11-08] MEDS: EPINEPHRINE OPERA.SITE (10:13)
[2022-11-08] MEDS: Povidone Iodine 30 ML Opthalmic Sol 1 DRP (10:13)
[2022-11-08] MEDS: LIDOCAINE 1% OPERA.SITE (10:13)
--- NOTE | 2022-11-08 10:25 | LES_PTH ---
PATIENT: OSMAR ARROYO LOC: U#:[id number] AGE/SX: 62/F ROOM: RE11/08/[address]: Dr. Nevaeh Ma MD : 1960 BED: DIS: 11/08/2022 SPEC #: [id number] RECD: 11/08/22 11:29 STATUS: DIMITRIS BELTRAN #: [id number] JOSH: 11/08/22 10:[address]: Nevaeh Ma DEPT: SURGICAL PATHOLOGY RECD BY: Antonella Johnson ENTERED: 11/08/22 11:56 SP TYPE: Lesion OTHR DR: Dr. 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 Left cheek mass, subcutaneous, B. Left posterior shoulder lesion MICROSCOPIC DIAGNOSIS A. Skin lesion of left cheek, excision: Epidermal inclusion cyst. B. Skin lesion of left posterior shoulder, excision: Epidermal inclusion cyst. AM:radha 11/11/2022 MICROSCOPIC DESCRIPTION Slides are reviewed. GROSS DESCRIPTION A - Received in fixative is one container labeled with the patient's name and designated left cheek mass. The specimen consists of a hernandes skin fragment measuring 2.0 x 1.0 cm. Attached to it is an ovoid light hernandes soft tissue measuring 1.2 cm. The specimen is inked, serially sectioned and totally submitted in two cassettes. B - Received in fixative is one container labeled with the patient's name and designated left posterior shoulder lesion. The specimen consists of a hernandes fragment of skin measuring 1.2 x 0.8 x 0.6 cm. The specimen is bisected and totally submitted in one cassette. / ANNETTA 11/08/22. TC:1 CPT: 54308 x2
--- NOTE | 2022-11-08 11:13 | DCINST_ITS ---
Discharge Instructions Follow Up Care Test Results: Test results from this visit will be discussed in further detail at your follow- up appointment, if applicable. Discharge Plan Admission Attending Provider: Nevaeh Ma Primary Care Provider: Herminia Barros Discharge Orders/Prescriptions Prescriptions: No Action colestipol 1 gram tablet 1 g PO ONCE Qty: 90 3RF famotidine 20 mg tablet 20 mg PO Q8H Qty: 270 3RF multivitamin [Daily Multi-Vitamin] Tablet 1 tab PO DAILY cetirizine [Zyrtec] 10 mg Tablet 10 mg PO DAILY fluticasone propionate [Flonase] 50 mcg/actuation [place],Suspension 1 spray INTRANASAL DAILY olopatadine [Pataday] 0.2 % Drops 1 drp EACH EYE DAILY Referrals / Follow Up: Herminia Barros MD [Primary Care Provider] - Disposition Disposition (needs filled in before D/C Order can be placed): Home, Self Care
--- NOTE | 2022-11-08 11:14 | DCINST_ITS ---
Discharge Instructions Diet Discharge Diet: No restrictions Activity Additional Activity Instructions:: Keep back elevated (recliner position) for the next 4 nights to decrease swelling and bruising. Dressing / Incision Additional Dressing/Incision Instructions:: Keep the Steri-Strips on the left cheek dry. Do not remove until seen in the office. May shower over the dressing on the back and leave it intact. Follow Up Care Please Follow Up With: Nevaeh Ma MD When: 2 weeks Test Results: Test results from this visit will be discussed in further detail at your follow- up appointment, if applicable. Discharge Plan Admission Attending Provider: Nevaeh Ma Primary Care Provider: Herminia Barros Discharge Orders/Prescriptions Prescriptions: New cephalexin 500 mg capsule 500 mg PO BID Qty: 10 0RF No Action colestipol 1 gram tablet 1 g PO ONCE Qty: 90 3RF famotidine 20 mg tablet 20 mg PO Q8H Qty: 270 3RF multivitamin [Daily Multi-Vitamin] Tablet 1 tab PO DAILY cetirizine [Zyrtec] 10 mg Tablet 10 mg PO DAILY fluticasone propionate [Flonase] 50 mcg/actuation [place],Suspension 1 spray INTRANASAL DAILY olopatadine [Pataday] 0.2 % Drops 1 drp EACH EYE DAILY Referrals / Follow Up: Herminia Barros MD [Primary Care Provider] - Disposition Disposition (needs filled in before D/C Order can be placed): Home, Self Care
--- NOTE | 2022-11-08 11:20 | OP.PCM_ITS ---
Report of Operation Date of Procedure: 11/08/22 Pre-Operative Diagnosis: Subcutaneous mass left cheek; lesion left posterior ba ck near shoulder Post-Operative Diagnosis: Same Surgery/Procedure Performed:: Excision subcutaneous mass left cheek (5.0 cm); excision lesion of posterior back (1.5 cm) with intermediate closure Surgeon: Nevaeh Ma Type of Anesthesia: Local Description of Procedure: The patient was brought to the operating room and placed on the right lateral decubitus position. The left cheek and left posterior shoulder are prepped and draped in the usual sterile fashion. We initially began with injecting 1% Xylocaine with epinephrine buffered with sodium bicarb. Following this, an elliptical incision is made over the site on the cheek and carried down carefully through the subcutaneous tissue until the mass is identified. Careful dissection around the mass removes it intact. Hemostasis is controlled with cautery. The incision is then closed using Vicryl suture in the subcutaneous tissue and dermis. Skin edges were approximated with a running subcuticular Vicryl suture and further reinforcement and refinement is achieved with a fast- absorbing gut suture. We next addressed the site on the back and after this is anesthetized, an elliptical incision is made over top of the mass and carried down through the skin and subcutaneous tissue to totally remove the mass. Hemostasis is controlled with cautery. The incisions then closed with Monocryl suture in the subcutaneous tissue and dermis. Skin edges were approximated with running subcuticular Monocryl suture. Further reinforcement the closure was done with a running Prolene suture. Dermabond and Steri-Strips were placed on both sides. On the back, a small Tegaderm was placed over top of the Steri-Strips. She tolerated the procedure well and was taken to the recovery area in an awake and stable condition. Needle and sponge counts are correct. Complications none
[2022-11-08 11:49] VITALS: BP 118/70; O2SAT 100
[2022-11-08 11:51] VITALS: BP 118/70; BP 140/73; O2SAT 100
[2022-11-08 11:55] VITALS: BP 119/73; BP 122/73; BP 124/76; BP 126/73; BP 126/78; BP 132/87; BP 134/68; BP 135/81; BP 139/75; BP 140/71; BP 140/73; BP 140/74; BP 141/74; BP 147/75; O2SAT 100; O2SAT 95; O2SAT 96; O2SAT 97; O2SAT 98; O2SAT 99
== END 2022-11-08 11:50 | disposition home or self-care (01) ==
PROVIDERS: PCP Family Medicine; Referring Provider Plastic Surgery; Visit Provider Plastic Surgery
PROC: (CPT 12032; principal; 2022-11-08 10:10)
DX: L72.0 Epidermal cyst (principal); F17.200 Nicotine dependence, unspecified, uncomplicated; K21.9 Gastro-esophageal reflux disease without esophagitis; Z87.01 Personal history of pneumonia (recurrent)
CPT/HCPCS: 12032; 12052; 00300; 88304; 88305

== ENCOUNTER → 2023-04-04 | Outpatient (CLI) | payer OTHER, SELFPAY ==
[2023-04-08 14:09] LABS: Gastrin, Serum 48 pg/mL (0-115)
== END | disposition home or self-care (01) ==
LOC: LAB 09:06
PROVIDERS: PCP Family Medicine; Referring Provider Internal Medicine Gastroenterology; Visit Provider Internal Medicine Gastroenterology
DX: K21.9 Gastro-esophageal reflux disease without esophagitis (principal)
CPT/HCPCS: 36415; 82941

== ENCOUNTER → 2023-07-04 | Outpatient (CLI) | payer OTHER, SELFPAY ==
[2023-07-04 15:22] LABS: Absolute Lymphocyte Count 4.29 X10^3/uL (0.83-4.51); Absolute Neutrophil Count 8.4 X10^3/uL (2.0-7.7); Basophil# 0.06 X10^3/uL; Basophil% 0.4 % (0-1); Eosinophil# 0.05 X10^3/uL; Eosinophils% 0.4 % (0-5); Hematocrit 45.8 % (37-47); Hemoglobin 14.8 g/dL (12.0-15.0); Lymphocyte # 4.29 X10^3/ul (0.83-4.51); Lymphocyte % 32.1 % (19-41); Mean Corp Hgb Conc 32.3 g/dL (32-36); Mean Corpuscular Hgb 29.4 pg (27.0-32.0); Mean Corpuscular Volume 91.1 fL (81-99); Mean Platelet Vol. 10.4 fl (6.2-12.0); Monocyte# 0.56 X10^3/uL; Monocyte% 4.2 % (0-10); NRBC Flagged by Analyzer 0 % (0-5); Neutrophil # 8.35 X10^3/uL (2.7-7.7); Neutrophil % 62.6 % (47-70); Platelet Count 331 K/mm3 (150-450); RBC Distribution Width CV 13.2 % (11.6-14.6); RBC Distribution Width SD 43.8 fl (35.1-43.9); Red Blood Count 5.03 M/mm3 (4.2-5.4); White Blood Count 13.4 K/mm3 (4.4-11.0)
== END | disposition home or self-care (01) ==
LOC: MFPLAB 13:57
PROVIDERS: PCP Family Medicine; Visit Provider Family Medicine
DX: R53.81 Other malaise (principal); R53.83 Other fatigue
CPT/HCPCS: 36415; 84443; 85025

== ENCOUNTER → 2023-07-16 | Outpatient (CLI) | payer OTHER, SELFPAY ==
--- NOTE | 2023-07-16 12:28 | US_ITS ---
STUDY: THYROID ULTRASOUND REASON FOR EXAM: Female, 63 years old. Goiter. TECHNIQUE: Ultrasound evaluation of the thyroid was performed with real-time and static lopez-scale imaging. COMPARISON: Comparison is made with prior study February 08, 2019. FINDINGS: RIGHT LOBE: The right lobe of the thyroid gland is slightly enlarged and measures 5.1 cm x 1.6 x 1.2 cm. There is a homogeneous echotexture. There is a 5 mm x 4 mm x 4 mm hypoechoic nodule in the upper pole. A similar-appearing nodule measuring 4 mm x 4 mm x 2 mm is seen in the midpole. LEFT LOBE: The left lobe of the thyroid gland is enlarged and measures 5.6 cm x 1.5 cm x 1.5 cm. There is a homogeneous echotexture. There is a 4 mm x 3 mm x 3 mm cyst in the upper pole. A similar-appearing cystic changes also seen in the upper pole measuring 4 mm x 3 mm x 2 mm. ISTHMUS: The isthmus measures 2 cm. The regional lymph nodes are normal. US/Thyroid IMPRESSION: Enlargement of the thyroid. 2. Subcentimeter cysts are seen in the upper pole of the left lobe of the thyroid. Subcentimeter solid nodule seen in the upper and midpole of the right lobe of the thyroid. Correlation with a nuclear medicine uptake and thyroid scan recommended. Electronically Signed: Arron Carias MD at 15:40 EDT ,
--- NOTE | 2023-07-16 12:28 | BI_ITS ---
MAMMOGRAPHY - BILATERAL SCREENING REASON FOR EXAM: Female, 63 years old. Routine annual screening examination. PERTINENT HISTORY: Aunt with breast cancer. Remote left excisional breast biopsy and left stereotactic breast biopsy. TECHNIQUE: Digital bilateral breast guillermo (3D mammographic acquisition) in the CC and MLO projections. 2-D mediolateral oblique (MLO) and craniocaudad (CC) views of both breasts were obtained. CAD: Full Field Digital Mammography with Computer Added Detection was performed. COMPARISON: Comparison is made with prior study July 05, 2022 and April 16, 2021. FINDINGS: Breast Composition: There are scattered areas of fibroglandular density. There are no dominant masses or suspicious calcifications. Once again, a tissue clip marker is seen in the retroareolar region of the left breast. No other significant abnormalities are identified. There has been no significant change since the prior study. BI/SCRN MAMM (CAD)W/GUILLERMO BILAT IMPRESSION: Stable bilateral screening mammogram. Yearly follow-up mammogram recommended. (A) ASSESSMENT CATEGORY: BIRADS Category 2: Benign. A letter regarding these results will be sent to the patient by the facility within 30 days. Approximately 10% of breast cancers are not detected by mammography. A normal mammogram should not delay biopsy of a clinically suspicious abnormality. [id number] Electronically Signed: Arron Carias MD at 13:41 EDT ,
== END | disposition home or self-care (01) ==
PROVIDERS: PCP Family Medicine; Referring Provider Family Medicine; Visit Provider Family Medicine
DX: Z12.31 Encounter for screening mammogram for malignant neoplasm of breast (principal); Z80.3 Family history of malignant neoplasm of breast; E04.9 Nontoxic goiter, unspecified
CPT/HCPCS: 76536; 77063; 77067

== ENCOUNTER → 2023-08-06 | Outpatient (CLI) | payer OTHER, SELFPAY ==
--- NOTE | 2023-08-06 08:23 | NM_ITS ---
CLINICAL: 63-year-old male with history of goiter formation. I-123 THYROID UPTAKE and SCAN COMPARISON: Thyroid ultrasound report 07/16/2023 FINDINGS: The patient was administered a 325 uCi I-123 capsule by mouth. The 4-hour I-123 radioactive iodine thyroidal uptake was calculated to be 10.2 % (normal 5 to 25 %). The 24-hour I-123 radioactive iodine thyroidal uptake was calculated to be 27.1 % (normal 5 to 40 %). The I-123 thyroid scan demonstrates homogeneous radiopharmaceutical concentration throughout both lobes of a vaguely U-shaped thyroid gland. There are no colloidal parenchymal hypofunctioning cold nodules noted in either lobe of the thyroid gland. NM/Thyroid Uptake Single or Mult IMPRESSION: 1. NORMAL 4- and 24-hour I-123 radioactive iodine thyroidal uptakes. 2. The I-123 thyroid scan is consistent with stage I nodular colloid goiter secondary to the presence of isthmus radiopharmaceutical concentration. (Louie et al, J Nucl Med 32: 1455, 1991). 3. No hypofunctioning-cold nodules are identified. Electronically Signed: Damian Núñez DO at 8:12 EDT ,
== END | disposition home or self-care (01) ==
PROVIDERS: PCP Family Medicine; Referring Provider Family Medicine; Visit Provider Family Medicine
DX: E04.1 Nontoxic single thyroid nodule (principal)
CPT/HCPCS: 78012; A9516

== ENCOUNTER 2024-04-13 13:03 | Day surgery (SDC) | payer OTHER, SELFPAY ==
--- NOTE | 2024-04-13 13:15 | PRE.ANES_ITS ---
ASA Classification* ASA Classification ASA Classification: 2 Assessment & Plan Anesthesia* Anesthesia Assessment Anesthesia Assessment: Discussed sedation and/or anesthesia options, risks, benefits, and alternatives with patient/parents/legal guardian/POA. Questions invited. The patient/parents/legal guardian/POA seems to understand and agrees to proceed with anesthesia plan. Reviewed the physical assessment, medical history, allergy history and patient home medications list prior to surgery/procedure/anesthetic and documented any changes. Performed airway and anesthesia risk assessments. Anesthesia Type Anesthesia Type: MAC Anesthesia Focused Assessment* Airway Assessment Mouth opens: >3 cm Mallampati Score: II Focused Labs Anesthesia Preop lab: CBC WBC 13.4 K/mm3 (4.4-11.0) H 07/04/23 13:58 RBC 5.03 M/mm3 (4.2-5.4) 07/04/23 13:58 Hgb 14.8 g/dL (12.0-15.0) 07/04/23 13:58 Hct 45.8 % (37-47) 07/04/23 13:58 Plt Count 331 K/mm3 (150-450) 07/04/23 13:58 CHEMISTRY Potassium 3.7 mmol/L (3.5-5.1) 06/21/22 15:13 Sodium 137 mmol/L (136-145) 06/21/22 15:13 BUN 13 mg/dL (7-18) 06/21/22 15:13 Creatinine 0.73 mg/dL (0.55-1.02) 06/21/22 15:13 Glucose 130 mg/dL (74-106) H 06/21/22 15:13 TSH 1.20 uIU/mL (0.358-3.74) 07/04/23 13:58 COAG Pre-Assessment Diagnosis/Proposed Procedure Planned Operative Procedure(s): COLONOSCOPY/EGD Anesthesia History 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 When Was Last Pacemaker Check QUESTION #4 FULL TEXT: You/Your Family Experience fever (hyperthermia) with Anesthesia Last Oral Intake Last Oral intake: Last Oral Intake NPO since Meds taken in AM with sips of water? Meds patient instructed to take am of surgery PONV PONV - electronics scale tester: PONV - electronics scale tester Female Yes 04/09/24 11:58 HX of Motion Sickness No 04/09/24 11:58 HX of N/V After Surgery No 04/09/24 11:58 Non-Smoker No 04/09/24 11:58 Duration of Surgery greater No 04/09/24 11:58 than 60 minutes Number of Risk Factors 1 04/09/24 11:58 PONV Score Low Risk 04/09/24 11:58 Height & Weight Height & Weight: Anesthesia: Height & Weight Height 5 ft 7 in 11/08/22 09:25 Respiratory Assessment Respiratory Assessment - electronics scale tester: Respiratory Tract Infection Hx - electronics scale tester Hx Respiratory Tract Infection No 04/09/24 11:58 STOP Sleep Apnea STOP Sleep Apnea - electronics scale tester: STOP Sleep Apnea - electronics scale tester Hx Hypertension No 04/09/24 11:58 Hx Sleep Apnea No 04/09/24 11:58 CPAP No 04/09/24 11:58 BIPAP Do you snore loudly (louder No 04/09/24 11:58 than talking or can be heard Do you often feel tired/ No 04/09/24 11:58 fatigued/ sleepy during daytime? Has anyone observed you stop No 04/09/24 11:58 breathing during sleep? STOP Results Negative 04/09/24 11:58 QUESTION #5 FULL TEXT : Do you snore loudly (louder than talking or can be heard through closed doors)? 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 Specify any problems Hx of Preganancy in last 3 No 04/09/24 11:58 Months Nurse Filling Out Transfusion VCHRISTIN 04/09/24 11:58 & Questions: Date: 04/09/24 04/09/24 11:58 Time: 11:59 04/09/24 11:58 Patient unable to answer at this time (ie. confused, unrespo /Reproduction History /Reproductive History - electronics scale tester: /Reproductive Hx- electronics scale tester Hx Now Gestational Age (in weeks): EDC: Hx Hx Para Hx Section SAB PFSH Medical History Post-menopausal History of steroid therapy Arthritis History of IBS History of stress test Pneumonia Hives IBS (irritable bowel syndrome) Cataracts, bilateral Breast lump in female Allergies Wears glasses Anxiety Thyroid disease Gastric reflux Smoker Asthma History of stress test Diarrhea History of bacterial pneumonia Chronic neck and back pain Knee pain History of diarrhea Shoulder pain History of arthritis History of hemorrhoids Home Medications ?Medication ?Instructions ?Recorded ?Last Taken ?Type cetirizine 10 mg tablet (Zyrtec) 10 mg PO DAILY 04/10/21 11/08/22 06:40 History multivitamin (Daily Multi-Vitamin 1 tab PO DAILY 10/02/22 Unknown History tablet) famotidine 20 mg tablet 20 mg PO Q8H #270 tabs 05/03/23 Unknown Rx colestipol 1 gram tablet 1 g PO QDAY PRN stomach upset 10/21/23 Unknown History albuterol sulfate 90 mcg/actuation 2 puff inhalation Q4H PRN PRN 04/09/24 Unknown History aerosol inhaler shortness of breath or wheezing Allergy/AdvReac Type Severity Reaction Status Date / Time codeine Allergy Severe Nausea/Vom/ Verified 04/09/24 11:49 Diarrhea morphine Allergy Severe Nausea/Vom/ Verified 04/09/24 11:49 Diarrhea Tetracyclines Allergy Severe Nausea/Vom/ Verified 04/09/24 11:49 Diarrhea Family History Father Anesthesia complication Asthma Cancer Brain Cancer Heart disease Diabetes Hypertension High cholesterol COPD (chronic obstructive pulmonary disease) CVA (cerebral vascular accident) Mother Kidney disease Lung cancer Aunt Breast cancer Grandfather Diabetes Grandmother Diabetes Grandfather Diabetes Grandmother Diabetes Surgical History Hx of endoscopic sinus surgery History of esophagogastroduodenoscopy (EGD) History of hysterectomy History of cholecystectomy Social History Smoking Status: Light Smoker (<10/day) alcohol intake: current substance use type: does not use additional social history: Does Not Take Aspirin Does Not Take Ibuprofen Review of Systems (Anesthesia) ROS Narrative System reviewed and no additional complaints, except as documented.
--- NOTE | 2024-04-13 13:32 | PCM.HP.STD ---
HPI - General General Date of Admission: 04/13/24 Date of Service: 04/13/24 HPI Narrative OSMAR ARROYO, is a 64 F who presents *BGI established 03.12.21 with frequent loose stools, bloating with abdominal distention causing pressure/pain. ? Biochemical 03.12.21 ESR, TSH, GAME, celiac WNL? CRP H8.56, gastrin H446 ? EGD colonoscopy 03.13.21 EGD LA Grade A esophagitis; medium hiatal hernia; gastritis; duodenitis. No metaplasia. ? Colonoscopy three sessile hyperplastic polyps ? Stool 04.04.21 calprotectin, EP, giardia WNL ? MRI abd 04.04.21 s/p cholecystectomy. No acute/chronic finding. OV 04.25. with resolution of loose stools; but is having BM 2-3/day with very firm stools and straining. OV 2. return of loose stools following ATB use. Continues colestipol 2gAM, 1gQHS OV 4.. diet restrictions of spicy foods and reduction of alcohol have improved loose stools/bloating. Famotidine is helpful with reflux. ? Biochemical 5. gastrin WNL OV 7. gastrin has normalized with cessation of PPI; Continue colestipol. ? Biochemical 12.. gastrin WNL OV 12. Continue famotidine and colestipol. OV 04.14. Reports she is doing well at this time without loose stools or bloating. Colestipol QOD is doing well without loose stools or constipation, if taken daily she will have constipation. OV 6. pt reports that she is doing well overall and denies GI symptoms of concern at this time. Pt reports 3-4 formed bm per day; denies blood in the stool. Continues with Colestipol and Famotidine. [facility] Medical History Post-menopausal History of steroid therapy Arthritis History of IBS History of stress test Pneumonia Hives IBS (irritable bowel syndrome) Cataracts, bilateral Breast lump in female Allergies Wears glasses Anxiety Thyroid disease Gastric reflux Smoker Asthma History of stress test Diarrhea History of bacterial pneumonia Chronic neck and back pain Knee pain History of diarrhea Shoulder pain History of arthritis History of hemorrhoids Home Medications ?Medication ?Instructions ?Recorded ?Last Taken ?Type cetirizine 10 mg tablet (Zyrtec) 10 mg PO DAILY 04/10/21 11/08/22 06:40 History multivitamin (Daily Multi-Vitamin 1 tab PO DAILY 10/02/22 Unknown History tablet) famotidine 20 mg tablet 20 mg PO Q8H #270 tabs 05/03/23 Unknown Rx colestipol 1 gram tablet 1 g PO QDAY PRN stomach upset 10/21/23 Unknown History albuterol sulfate 90 mcg/actuation 2 puff inhalation Q4H PRN PRN 04/09/24 Unknown History aerosol inhaler shortness of breath or wheezing Allergy/AdvReac Type Severity Reaction Status Date / Time codeine Allergy Severe Nausea/Vom/ Verified 04/13/24 13:31 Diarrhea morphine Allergy Severe Nausea/Vom/ Verified 04/13/24 13:31 Diarrhea Tetracyclines Allergy Severe Nausea/Vom/ Verified 04/13/24 13:31 Diarrhea Family History Father Anesthesia complication Asthma Cancer Brain Cancer Heart disease Diabetes Hypertension High cholesterol COPD (chronic obstructive pulmonary disease) CVA (cerebral vascular accident) Mother Kidney disease Lung cancer Aunt Breast cancer Grandfather Diabetes Grandmother Diabetes Grandfather Diabetes Grandmother Diabetes Surgical History Hx of endoscopic sinus surgery History of esophagogastroduodenoscopy (EGD) History of hysterectomy History of cholecystectomy Social History Smoking Status: Light Smoker (<10/day) alcohol intake: current substance use type: does not use additional social history: Does Not Take Aspirin Does Not Take Ibuprofen Physical Exam Const alert, oriented x3, no apparent distress and healthy appearing General Appearance: cooperative GI normal to inspection, nondistended, normoactive bowel sounds, soft to palpation, non-tender and non-distended Percussion: normal to percussion Rectal Exam: deferred Assessment & Plan Assessment/Plan (1) Elevated gastrin level: (2) Gastric reflux: (3) Diarrhea: QUALIFIERS: Diarrhea type: functional diarrhea Qualified Code(s): K59.1 - Functional diarrhea PLAN: Plan (1) Gastric reflux: Status: Chronic Plan: Continue famotidine 20 mg twice daily, she can take a third dose if needed. Follow-up 1 year (2) Colon polyps: Status: Chronic Qualifiers: Colon polyp type: adenomatous Colon location: sigmoid Qualified Code(s): D12.5 - Benign neoplasm of sigmoid colon Plan: She will be due for repeat colonoscopy in March 2024 (3) Diarrhea: Status: Acute Qualifiers: Diarrhea type: functional diarrhea Qualified Code(s): K59.1 - Functional diarrhea Plan: Diarrhea is much better with administration of colestipol 2 g in the morning 2 pills at night. She is having normal formed bowel movements no more than 1 or 2/day. She knows that certain foods tend to make it worse such as foods with a high carbohydrate load and greasy foods. She will try to restrict those as much as possible. She has a personal history of adenomatous polyps and we recommended 3-year follow-up colonoscopy. That is coming up pretty soon. So we will schedule her for surveillance colonoscopy. (4) Elevated gastrin level: Status: Acute Plan: Hypergastrinemia felt to be secondary to PPI therapy. We will recheck a gastrin level and monitor it every 3 months.
[2024-04-13 13:35] VITALS: BP 137/103; PULSE 82; RESP 16; TEMP 36.1; O2SAT 99; BMI 26.6
--- NOTE | 2024-04-13 14:15 | IMM_PTH ---
PATIENT: OSMAR ARROYO LOC: EN U#:[id number] AGE/SX: 64/F ROOM: RE04/13/[address]: Dr. Kendall Dupont DO : 1960 BED: DIS: 04/13/2024 SPEC #: [id number] RECD: 04/14/24 11:23 STATUS: DIMITRIS REQ #: [id number] JOSH: 04/13/24 14:[address]: Kendall Dupont DEPT: IMMUNOHISTOCHEMISTRY RECD BY: Bennett Flores ENTERED: 04/14/24 11:23 SP TYPE: IMMUNO OTHR DR: Dr. Herminia Barros MD Tissues: A - Gastric mucous membrane Procedures: H Pylori (initial) PHYSICIAN & INSTITUTION [place] [id number] SPECIMEN INFORMATION: Tissue Source: A- Gastric body biopsy Clinical Info: Elevated gastrin level, gastric reflux, diarrhea Specimen Number: [id number] CPT code: 63151 METHODOLOGY: Deparaffinized sections of prefer/formalin-fixed tissue or PAP/DQ stained slides are incubated with monoclonal/polyclonal antibodies/oligonucleotide probes. Localization is made via biotin free immunoperoxidase method. Appropriate controls are performed and reacted as expected. Results on target cell population are indicated in the following table: RESULTS: ANTIBODY / CLONE RESULT Block A H Pylori (polyclonal) negative These tests were developed and their performance characteristics determined by [facility]. They may not have been cleared or approved by the U.S. Food and Drug Administration. The FDA has determined that such clearance or approval is not necessary. The above immunohistochemical/dualISH markers are ordered and reviewed by the Pathologist. INTERPRETATION: A. Gastric body, biopsy: Negative for Helicobacter pylori organisms. AM. 04/15/2024
--- NOTE | 2024-04-13 14:15 | COLBX_PTH ---
PATIENT: OSMAR ARROYO LOC: EN U#:[id number] AGE/SX: 64/F ROOM: RE04/13/[address]: Dr. Kendall Dupont DO : 1960 BED: DIS: 04/13/2024 SPEC #: [id number] RECD: 04/14/24 07:27 STATUS: DIMITRIS DEVIN #: [id number] JOSH: 04/13/24 14:[address]: Kendall Dupont DEPT: SURGICAL PATHOLOGY RECD BY: Javan Mao ENTERED: 04/14/24 11:24 SP TYPE: COLON BX OTHR DR: Dr. Herminia Barros MD Tissues: A - Gastric mucous membrane B - Duodenum, NOS C - Ileum, NOS D - COLON BIOPSY Procedures: Surgery Specimen Level IV HEADER OPERATION: Colonoscopy with biopsy, EGD with biopsy PRE-OP DIAGNOSIS: Elevated gastrin level, gastric reflux, diarrhea TISSUE SUBMITTED: A- Gastric body biopsy, B- Duodenum biopsy, C- Terminal ileum biopsy,D- Random colon biopsy MICROSCOPIC DIAGNOSIS A. Gastric body, biopsy: Chronic gastritis. See comment. B. Duodenum, biopsy: Mild non-specific chronic inflammation. C. Terminal ileum, biopsy: No pathologic change. D. Colon, random biopsy: No pathologic change. AMJesus 04/15/2024 COMMENT A The results of immunohistochemistry for Helicobacter pylori will be reported separately ([id number]). MICROSCOPIC DESCRIPTION Slides are reviewed. GROSS DESCRIPTION A. Received in fixative is one container labeled with the patient's name and designated Gastric body biopsy. The specimen consists of two irregular fragments of light hernandes soft tissue that in aggregate measure 1.0 x 0.3 x 0.1 cm. The specimen is totally submitted in one cassette. B. Received in fixative is one container labeled with the patient's name and designated Duodenum biopsy. The specimen consists of multiple irregular fragments of light hernandes soft tissue that in aggregate measure 1.0 x 0.3 x 0.1 cm. The specimen is totally submitted in one cassette. C. Received in fixative is one container labeled with the patient's name and designated Terminal ileum biopsy. The specimen consists of multiple irregular fragments of light hernandes soft tissue that in aggregate measure 1.2 x 0.4 x 0.1 cm. The specimen is totally submitted in one cassette. D. Received in fixative is one container labeled with the patient's name and designated Random colon biopsy. The specimen consists of multiple irregular fragments of light hernandes soft tissue that in aggregate measure 0.8 x 0.8 x 0.1 cm. The specimen is totally submitted in one cassette. SJJesusmr 04/14/2024 TC:3 CPT:05786o6
--- NOTE | 2024-04-13 15:04 | OP.CCLET_ITS ---
04/13/2024 Herminia Barros [address] [place] [address] Re : Upper GI endoscopy procedure for Elo Laws Dear Dr. Barros This procedure was performed on Saturday, April 13, 2024. My impressions and recommendations are as follows: Impressions : - Normal esophagus. - Small hiatal hernia. - Chronic gastritis. Biopsied. - Erythematous duodenopathy. Biopsied. Recommendations : - Discharge patient to home. - Resume previous diet. - Continue present medications. - Await pathology results. My findings are described in the full procedure note, which is enclosed. If I can be of further assistance, please feel free to contact me at . Sincerely, Kendall Dupont, 04/13/2024 3:04:02 PM This report has been signed electronically.
--- NOTE | 2024-04-13 15:04 | OP.EGD_ITS ---
Patient Name: Elo Laws Procedure Date: 04/13/2024 2:26 PM Date of : 1960 Age: 64 Procedure: Upper GI endoscopy Indications: Functional Dyspepsia, Indigestion, Esophageal reflux Providers: Kendall Dupont DO Referring MD: Herminia Barros Medicines: Monitored Anesthesia Care Patient Profile: This is a 64 year old female. Refer to note in patient chart for documentation of history and physical. Patient has symptoms of chronic epigastric abdominal pain, chronic nausea, chronic regurgitation and chronic vomiting. Complications: No immediate complications. Procedure: Pre-Anesthesia Assessment: - Prior to the procedure, a History and Physical was performed, and patient medications and allergies were reviewed. The patient is competent. The risks and benefits of the procedure and the sedation options and risks were discussed with the patient. All questions were answered and informed consent was obtained. Patient identification and proposed procedure were verified by the physician in the pre-procedure area. Mental Status Examination: alert and oriented. Airway Examination: normal oropharyngeal airway and neck mobility. Respiratory Examination: clear to auscultation. CV Examination: normal. Prophylactic Antibiotics: The patient does not require prophylactic antibiotics. Prior Anticoagulants: The patient has taken no anticoagulant or antiplatelet agents except for NSAID medication. ASA Grade Assessment: II - A patient with mild systemic disease. After reviewing the risks and benefits, the patient was deemed in satisfactory condition to undergo the procedure. The anesthesia plan was to use monitored anesthesia care (MAC). Immediately prior to administration of medications, the patient was re-assessed for adequacy to receive sedatives. The heart rate, respiratory rate, oxygen saturations, blood pressure, adequacy of pulmonary ventilation, and response to care were monitored throughout the procedure. The physical status of the patient was re-assessed after the procedure. After obtaining informed consent, the endoscope was passed under direct vision. Throughout the procedure, the patient's blood pressure, pulse, and oxygen saturations were monitored continuously. The Colonoscope was introduced through the mouth, and advanced to the second part of duodenum. The upper GI endoscopy was accomplished without difficulty. The patient tolerated the procedure well. Scope In: 2:36:46 PM Scope Out: 2:40:40 PM Total Procedure Duration Time 0 hours 3 minutes 54 seconds Findings: The examined esophagus was normal. A small hiatal hernia was present. Patchy mild inflammation characterized by erosions was found in the gastric body. Biopsies were taken with a cold forceps for histology. Verification of patient identification for the specimen was done. Estimated blood loss was minimal. Patchy moderately erythematous mucosa without active bleeding and with no stigmata of bleeding was found in the duodenal bulb. Biopsies were taken with a cold forceps for histology. Verification of patient identification for the specimen was done. Estimated blood loss was minimal. Impression: - Normal esophagus. - Small hiatal hernia. - Chronic gastritis. Biopsied. - Erythematous duodenopathy. Biopsied. Recommendation: - Discharge patient to home. - Resume previous diet. - Continue present medications. - Await pathology results. Procedure Code(s): --- Professional --- 40147, Esophagogastroduodenoscopy, flexible, transoral; with biopsy, single or multiple CPT copyright 2021 [employer]. All rights reserved. The codes documented in this report are preliminary and upon shoe parts molder review may be revised to meet current compliance requirements. Kendall Dupont DO 04/13/2024 3:04:02 PM This report has been signed electronically. Number of Addenda: 0 Note Initiated On: 04/13/2024 2:26 PM
[2024-04-13 15:05] VITALS: BP 137/99; BP 92/60; PULSE 84; RESP 16; TEMP 36.1; O2SAT 97
--- NOTE | 2024-04-13 15:06 | OP.CCLET_ITS ---
04/13/2024 Herminia Barros [address] [facility] [place] [address] Re : Colonoscopy procedure for Elo Laws Dear Dr. Barros This procedure was performed on Saturday, April 13, 2024. My impressions and recommendations are as follows: Impressions : - Diverticulosis in the sigmoid colon. - Congested mucosa in the recto-sigmoid colon, in the sigmoid colon and in the descending colon. Biopsied. - Congested mucosa in the terminal ileum. Biopsied. Recommendations : - Discharge patient to home. - Resume previous diet. - Continue present medications. - Await pathology results. - Repeat colonoscopy in 5 years for surveillance. My findings are described in the full procedure note, which is enclosed. If I can be of further assistance, please feel free to contact me at . Sincerely, Kendall Dupont, 04/13/2024 3:06:04 PM This report has been signed electronically.
--- NOTE | 2024-04-13 15:06 | OP.COLON_ITS ---
Patient Name: Elo Laws Procedure Date: 04/13/2024 2:41 PM Date of : 1960 Age: 64 Procedure: Colonoscopy Indications: Chronic diarrhea, Clinically significant diarrhea of unexplained origin Providers: Kendall Dupont DO Referring MD: Herminia Barros Medicines: Monitored Anesthesia Care Patient Profile: This is a 64 year old female. Refer to note in patient chart for documentation of history and physical. Patient has symptoms of chronic epigastric abdominal pain, chronic nausea, chronic regurgitation and chronic vomiting. Last Colonoscopy: within the past 3 years. Complications: No immediate complications. Procedure: Pre-Anesthesia Assessment: - Prior to the procedure, a History and Physical was performed, and patient medications and allergies were reviewed. The patient is competent. The risks and benefits of the procedure and the sedation options and risks were discussed with the patient. All questions were answered and informed consent was obtained. Patient identification and proposed procedure were verified by the physician in the pre-procedure area. Mental Status Examination: alert and oriented. Airway Examination: normal oropharyngeal airway and neck mobility. Respiratory Examination: clear to auscultation. CV Examination: normal. Prophylactic Antibiotics: The patient does not require prophylactic antibiotics. Prior Anticoagulants: The patient has taken no anticoagulant or antiplatelet agents except for NSAID medication. ASA Grade Assessment: II - A patient with mild systemic disease. After reviewing the risks and benefits, the patient was deemed in satisfactory condition to undergo the procedure. The anesthesia plan was to use monitored anesthesia care (MAC). Immediately prior to administration of medications, the patient was re-assessed for adequacy to receive sedatives. The heart rate, respiratory rate, oxygen saturations, blood pressure, adequacy of pulmonary ventilation, and response to care were monitored throughout the procedure. The physical status of the patient was re-assessed after the procedure. After I obtained informed consent, the scope was passed under direct vision. Throughout the procedure, the patient's blood pressure, pulse, and oxygen saturations were monitored continuously. The Colonoscope was introduced through the anus and advanced to the terminal ileum. The colonoscopy was performed without difficulty. Scope In: 2:43:03 PM Scope Withdrawal Time 0 hours 10 minutes 0 seconds Scope Out: 2:54:57 PM Total Procedure Duration Time 0 hours 11 minutes 54 seconds Findings: The perianal and digital rectal examinations were normal. A few small-mouthed diverticula were found in the sigmoid colon. An area of mildly congested mucosa was found in the recto-sigmoid colon, in the sigmoid colon and in the descending colon. Biopsies were taken with a cold forceps for histology. Verification of patient identification for the specimen was done. Estimated blood loss was minimal. A patchy area of the terminal ileum was congested. Biopsies were taken with a cold forceps for histology. Verification of patient identification for the specimen was done. Estimated blood loss was minimal. Impression: - Diverticulosis in the sigmoid colon. - Congested mucosa in the recto-sigmoid colon, in the sigmoid colon and in the descending colon. Biopsied. - Congested mucosa in the terminal ileum. Biopsied. Recommendation: - Discharge patient to home. - Resume previous diet. - Continue present medications. - Await pathology results. - Repeat colonoscopy in 5 years for surveillance. Procedure Code(s): --- Professional --- 19769, Colonoscopy, flexible; with biopsy, single or multiple CPT copyright 2021 [employer]. All rights reserved. The codes documented in this report are preliminary and upon dice manager review may be revised to meet current compliance requirements. Kendall Dupont DO 04/13/2024 3:06:04 PM This report has been signed electronically. Number of Addenda: 0 Note Initiated On: 04/13/2024 2:41 PM
--- NOTE | 2024-04-13 15:06 | PCM.POST.ANE ---
Anesthesia: Postop Eval I Current Vital Signs Temperature: 97 F Pulse Rate: 79 Blood Pressure: 92/60 Respiratory Rate: 16 Pulse Ox: 97 Oxygen Delivery Method: Room Air Assessment Airway patent: Yes Spontaneous unlabored respirations: Yes Mental status: Awake and Calm nausea: No Vomiting: No Anesthesia Complication: No Fluid Hydration Crystalloid volume administer (ml): 90 Total IV fluid infused: 90 Progress Note Anesthesia document: Postop Eval 1 completed: Yes
[2024-04-13 15:07] VITALS: BP 92/60; PULSE 79; RESP 16; TEMP 36.1; O2SAT 97
[2024-04-13 15:10] VITALS: BP 137/99; BP 93/65; PULSE 75; RESP 16; O2SAT 96
[2024-04-13 15:15] VITALS: BP 107/69; BP 137/99; PULSE 67; RESP 16; TEMP 36.2; O2SAT 97
[2024-04-13 15:35] VITALS: BP 137/99
--- NOTE | 2024-04-13 18:56 | PCM.POSTANE2 ---
Anesthesia Postop Eval I Sum Postop Eval Completion status Anesthesia document: Postop Eval 1 completed: Yes Anesthesia Postop Eval I Summary Anesthesia Postop Eval I Summary: Anesthesia Postop Eval I: Assessment Summary Airway patent Yes 04/13/24 15:07 [email or web address] Spontaneous unlabored Yes 04/13/24 15:07 [email or web address] respirations Mental status Awake,Calm 04/13/24 15:07 [email or web address] nausea No 04/13/24 15:07 [email or web address] Vomiting No 04/13/24 15:07 [email or web address] Anesthesia Postop Eval I: Fluid Summary Crystalloid volume administer 90 04/13/24 15:07 [email or web address] (ml) Colloids volume administered ( ml) Blood Product volume administered (ml) Total IV fluid infused 90 04/13/24 15:07 [email or web address] Anesthesia Postop Eval I: Summary Notes Anesthesia Complication No 04/13/24 15:07 [email or web address] Anesthesia Complication Comment: Post-operative progress note Anesthesia: Postop Eval II Evaluation Mental status: Awake Pain Level: 0 nausea: No Vomiting: No
== END 2024-04-13 15:45 | disposition home or self-care (01) ==
LOC: EN 13:10 → AC 13:11
PROVIDERS: PCP Family Medicine; Referring Provider Family Medicine; Visit Provider Internal Medicine Gastroenterology
PROC: 0DJD8ZZ Inspection of Lower Intestinal Tract, Via Natural or Artificial Opening Endoscopic (ICD-10-PCS; CPT 45378; principal; 2024-04-13 14:10)
DX: K29.80 Duodenitis without bleeding (principal); K44.9 Diaphragmatic hernia without obstruction or gangrene; K57.30 Diverticulosis of large intestine without perforation or abscess without bleeding; K29.50 Unspecified chronic gastritis without bleeding; K21.9 Gastro-esophageal reflux disease without esophagitis; J45.909 Unspecified asthma, uncomplicated; F17.200 Nicotine dependence, unspecified, uncomplicated; K59.1 Functional diarrhea; K25.9 Gastric ulcer, unspecified as acute or chronic, without hemorrhage or perforation
CPT/HCPCS: 45380; 43239; 88305; 88342; J2405

== ENCOUNTER → 2024-08-21 | Outpatient (CLI) | payer OTHER, SELFPAY ==
--- NOTE | 2024-08-21 08:12 | MRI_ITS ---
EXAM: MRI right knee CLINICAL HISTORY: Knee injury, knee pain instability and swelling COMPARISON: X-ray 08/11/2024 TECHNIQUE: Multiplanar spin echo aneurysms images of the right knee were obtained on a [place] strength magnet. FINDINGS: No medial meniscus tear. No chondromalacia in the medial compartment. The medial collateral ligament is intact. No lateral meniscus tear. Focal erosion and subchondral edema of the lateral tibial plateau. The fibular collateral ligament is intact. Shallow trochlear groove with lateral subluxation of the patella and edema superolateral Hoffa's fat pad consistent with patellofemoral maltracking. Grade 3 chondromalacia erosion of the median ridge of the patella with subchondral edema. Small joint effusion with a Frankel's cyst with multiple calcified bodies. Severe prepatellar bursitis. MRI/Lower Ext Joint Only (Routine) IMPRESSION: No meniscal or ligament tear. Focal erosion with subchondral edema of the lateral tibial plateau. Patellofemoral maltracking with an erosion of the median ridge of the patella w ith subchondral edema. Small joint effusion with a small Frankel's cyst with multiple calcified bodies. Severe prepatellar bursitis. Reading Location: [id number]
== END | disposition home or self-care (01) ==
LOC: MRI 08:06
PROVIDERS: PCP Family Medicine; Referring Provider Nurse Practitioner Family; Visit Provider Nurse Practitioner Family
DX: S83.421A Sprain of lateral collateral ligament of right knee, initial encounter (principal); M25.361 Other instability, right knee; X58.XXXA Exposure to other specified factors, initial encounter
CPT/HCPCS: 73721

== ENCOUNTER 2024-11-17 10:30 | Outpatient (RCR) | payer OTHER, SELFPAY ==
--- NOTE | 2024-10-01 13:01 | HP.PTEVAL_ITS ---
Patient's Visit Information Visit Information Visit Information: OSMAR ARROYO is a 64 year old F referred to Physical Therapy by AMRIT Bolivar with a diagnosis of Sprain of sprain lateral collateral ligament of right knee ,Effusion ,right. Date of Evaluation: 10/01/24 Physical Therapist: Calvni Barajas, PT, Cert MDT, OCS Visit Plan Frequency: 2x /Week Duration: 6 Weeks Plan: PT INTERVENTIONS ROM ,STRENGTHENING EX'S QUADS/HAMS/HIP ,FUNCTIONAL STRENGTHENING ,AND MODALITIES NEEDED Subjective Subjective: This 64 y/o female presents to physical therapy with right knee pain. Patient injury to knee getting off couch and knee gave way and landed on right knee July 17 . Patient had immediate pain .Patient seen DAJA Lemus days later after Vacation. Patient order x-rays and had MRI showed No meniscal or ligament tear.Focal erosion with subchondral edema of the lateral tibial plateau.Patellofemoral maltracking with an erosion of the median ridge of the patella with subchondral edema.Small joint effusion with a small Frankel's cyst with multiple calcified bodies,Severe prepatellar bursitis, grade 3 chondromalacia. Provided hinge brace cortisone injection . Voltaren cream. Aggregating kneeling/squatting ,stairs one steps at time with handrail. Patient has crepitus. C/O fatigue. Alleviating factors rest and cream. Denies paresthe aly/tingling. Patient sleeping okay . Patient condition affects QOL/function/gait. Patient has muscle spasms initially. Patient decrease pain gardening and camping SOCAIL: retired VOACTION: retired Pain Right Knee: Pain Intensity (Out of 10): 5 Pain Intensity Range: 10 Objective Objective: POSTURE: WFL,hinge brace donned PALAPTION: mild TTP joint line EDEMA: absent AROM: 3 -135 supine knee flexion MMT: ( peak force) right quads 17.3 ,hamstrings 14.3 ,hip flexion 19.9 ,hip abduction 13.7 FLEXABILITY: hamstrings min tight STAIRS: one steps at time with rails Special Tests R Knee Amna - Meniscus: Negative R Knee Valgus - MCL: Negative R Knee Varus - LCL: Positive R Knee Patellar Grind - PFS: Positive R Knee Medial Patellar Plica - Plica Syndrome: Positive Balance/Special Test Scores Lower Extremity Functional Score: 38 Goals Goal 1:: Patient to be I with HEP for knee Goal Time Frame: 4-6 Weeks Goal 2:: Patient to improve LFES score by 5-8 points to improve QOL and ADL'S Goal Time Frame: 4-6 Weeks Goal 3:: Patient to demonstrate 70% improvement with less pain and improved function with gait Goal Time Frame: 4-6 Weeks Goal 4:: Patient to improve peak force strength by 5-10 # to improve gait and housework tasks Goal Time Frame: 4-6 Weeks Goal 5:: Patient be able to return to prior level of function and ADLS stairs alternating w/o limitations Goal Time Frame: 4-6 Weeks Rehabilitation Potential Physical Therapy Diagnosis: This patient has left knee pain with patellofemoral dysfunction with decrease strength ,decrease stairs and modified squatting for housework tasks thus benefit from skilled PT Rehabilitation Potential: Good Anticipated Interventions Patient/Client Instruction: Educate patient on: Condition and Plan of Care For the Purpose of:: To decrease pain, To increase ROM, To improve muscle performance and motor function, To improve ability to perform ADL's, To increase tolerance to activity/condition/position, To improve ability of physical actions for home/community/work/leisure, To improve gait and locomotor functions, To improve health of tissue, To decrease soft tissue restriction, To increase flexibility/ROM, To improve endurance, To prevent re-injury and To improve natasha ance to ADL's Therapeutic Exercise to Include: Strength training, Endurance training, Flexibilty training, Passive ROM and Active ROM Comment: QUADS/HAMS/HIP For the Purpose of:: To decrease pain, To increase ROM, To improve muscle performance and motor function, To improve ability to perform ADL's, To increase tolerance to activity/condition/position, To improve ability of physical actions for home/community/work/leisure, To improve health of tissue, To decrease soft tissue restriction, To increase flexibility/ROM and To improve tolerance to ADL's TENS: Yes IF ES: Yes Cryotherapy (ice pack, ice massage): Yes Vasopneumatic device: Yes For the Purpose of:: To decrease pain, To decrease swelling/inflammation, To increase ROM, To improve health of tissue and To decrease soft tissue restriction Text: Thank you for the opportunity to evaluate your patient. For Medicare and Medicare HMO plans, please review the plan of care and approve it. It will need to be FAXED BACK to us at [phone] for Medicare purposes. For Medicare only, by signing this I certify the plan of care. Please let me know if there are questions or concerns regarding this plan of care. Physician Signature: Date:
== END 2024-11-17 19:00 | disposition home or self-care (01) ==
LOC: PT 10:30
PROVIDERS: PCP Family Medicine; Referring Provider Nurse Practitioner Family; Visit Provider Nurse Practitioner Family
DX: S83.421D Sprain of lateral collateral ligament of right knee, subsequent encounter (principal); M25.461 Effusion, right knee
CPT/HCPCS: 97035; 97110; 97162